=== PATIENT | female | born 1995 ===

== ENCOUNTER → 2020-10-03 15:03 | Outpatient (BNVA) | payer BC, MEDICAID, SELFPAY | PROVIDERS: Visit Provider Advanced Practice Midwife | DX: Z76.89 Persons encountering health services in other specified circumstances (principal) ==

== ENCOUNTER → 2020-10-31 14:03 | Outpatient (BNVA) | payer BC, MEDICAID, SELFPAY | PROVIDERS: Visit Provider Advanced Practice Midwife | DX: Z76.89 Persons encountering health services in other specified circumstances (principal) | CPT/HCPCS: 99212 ==

== ENCOUNTER 2020-11-13 14:18 | Outpatient (REF) | payer MEDICAID, SELFPAY ==
[2020-11-13 14:59] LABS: MANUAL DIFF FLAG NO
[2020-11-13 15:06] LABS: Basophils Percent Auto 0.4 % (0-2); Eosinophils Absolute Auto 0.1 X10*3/uL (0.0-0.4); Eosinophils Percent Auto 0.5 % (0-4); Hematocrit 36.6 % (37-47); Hemoglobin 11.8 g/dl (12.0-16.0); Imm Gran Abs Auto 0.03 X10*3/uL (0.00-0.03); Imm Gran Pct Auto 0.3 % (0.0-0.4); Lymphocytes Absolute Auto 2.4 X10*3/uL (1.2-4.9); Lymphocytes Percent Auto 22.2 % (20-40); Mean Corpuscular HGB Conc 32.2 g/dl (31.0-35.0); Mean Corpuscular Hemoglobin 26.9 pg (27.0-33.0); Mean Corpuscular Volume 83.4 fL (80-98); Mean Platelet Volume 11.4 fL (9.4-12.3); Monocytes Absolute Auto 0.8 X10*3/uL (0.1-1.2); Monocytes Percent Auto 7.1 % (2-11); Neutrophils Absolute Auto 7.4 X10*3/uL (2.0-8.3); Neutrophils Percent Auto 69.5 % (45-73); Platelet Count 344 X10*3/uL (160-400); Red Blood Count 4.39 X10*6/uL (4.20-5.50); Red Cell Distribution Width 14.2 % (11.0-16.0); White Blood Count 10.6 X10*3/uL (4.8-10.8)
[2020-11-13 15:36] LABS: Alanine Aminotransferase 13 U/L (0-31); Albumin Level 4.2 g/dL (3.5-5.0); Alkaline Phosphatase 57 U/L (39-117); Anion Gap 13 (12-20); Aspartate Amino Transferase 17 U/L (5-31); Bilirubin Total 0.2 mg/dL (0.0-1.0); Blood Urea Nitrogen 14 mg/dL (9-16); Calcium 9.1 mg/dL (8.4-10.2); Carbon Dioxide 26 mmol/L (22-29); Chloride 103 mmol/L (96-108); Estimated Glomerular Filt Rate > 60; Glucose Random 80 mg/dL (60-115); Potassium 4.6 mmol/l (3.3-5.1); Sodium 137 mmol/L (135-145); Total Protein 7.4 g/dL (6.5-8.0); Uric Acid 2.4 mg/dL (2.4-5.7)
[2020-11-13 15:40] LABS: Amphetamine Screen Urine Not Detected (Not Detect); Barbiturates, Urine Not Detected (Not Detect); Benzodiazepines Screen Urine Not Detected (Not Detect); Cannabinoid Screen Urine Not Detected (Not Detect); Cocaine Screen Urine Not Detected (Not Detect); Creatinine Urine 157.71 mg/dL; Opiate Screen Urine Not Detected (Not Detect); Phencyclidine Screen Urine Not Detected (Not Detect); Total Protein Urine Random 16 mg/dL (<12)
[2020-11-13 15:50] LABS: Syphilis Screen Nonreactive (Nonreactive)
[2020-11-14 04:31] LABS: HIV AB/AG Nonreactive (Nonreactive); HIV Num 1 0.14 S/CO (0.00-0.99); ~HepC Num1 0.09 S/CO (0.00-0.79); ~Hepatitis C Antibody Nonreactive (Nonreactive)
[2020-11-14 04:34] LABS: HBsAGNum1 0.26 S/CO (0.00-0.99); Hepatitis B Surface Antigen Negative (Negative)
== END 2020-11-13 14:19 | disposition home or self-care (01) ==
LOC: HO.LAB 14:18
PROVIDERS: PCP Internal Medicine; Visit Provider Advanced Practice Midwife
DX: Z34.90 Encounter for supervision of normal pregnancy, unspecified, unspecified trimester (principal)
CPT/HCPCS: 36415; 80053; 80307; 84156; 84550; 85025; 86780; 86803; 86850; 86900; 86901; 87086; 87340; 87389

== ENCOUNTER 2020-11-14 08:47 | Outpatient (REF) | payer MEDICAID, SELFPAY ==
[2020-11-15 17:47] LABS: C. trachomatis RNA TMA NOT DETECTED (NOT DETECTED); N. gonorrhoeae RNA TMA NOT DETECTED (NOT DETECTED)
== END 2020-11-14 08:48 | disposition home or self-care (01) ==
LOC: HO.LAB 08:47
PROVIDERS: Visit Provider Advanced Practice Midwife
DX: Z34.90 Encounter for supervision of normal pregnancy, unspecified, unspecified trimester (principal); Z86.010 Personal history of colon polyps
CPT/HCPCS: 87491; 87591; 88142; 99212

== ENCOUNTER 2020-11-24 09:15 | Outpatient (REF) | payer MEDICAID, SELFPAY ==
--- NOTE | 2020-11-24 09:19 | US_ITS ---
EXAMINATION: OBSTETRICAL ULTRASOUND, FIRST TRIMESTER HISTORY: 25-year-old at the 12.0 weeks of gestation History of preeclampsia and IUGR Membranous nephropathy NT screening COMPARISON: None TECHNIQUE: Real time transabdominal imaging with color and M-mode Doppler. FINDINGS: A single, live IUP CRL of 64.5 mm c/w 12.6wks is noted. Heart Rate: 158 beats per minute. Normal yolk sac seen. NT was 1.1.mm. NB Present The embryo appears sonographically wnl for this GA. Both maternal ovaries are seen and appear normal. GESTATIONAL AGE: 1. Established GA: 12.0 wks 2. GA from A: 12.6 wks ESTIMATED DATE OF DELIVERY: 1. Established CHAS: 06/08/2021 2. [facility]21 US/US OB 1T nuc measure IMPRESSION: 1. A single live IUP 2. Size equals dates 3. NT of 1.1 mm MFM Consultation: I reviewed the ultrasound findings along with significance of NT measurement. The NT of less than 3mm is generally reassuring. However, the sensitivity for T21 detection is only 60%. I reviewed the availability of serum aneuploidy screening which includes cell-free DNA and placental protein based tests. I discussed the sensitivity, false-positive rate, and other limitations associated with each test. I also reviewed the availability of invasive diagnostic tests that are associated small but definite risk of miscarriage. We also reviewed the differences between screening tests and diagnostic tests. After our discussion, she opted for the First trimester screening that is based on cell-free DNA or non-invasive testing (NIPT). In 2018, patient delivered at 36 weeks of 4 lbs. 15 oz. coronal. The was complicated by preeclampsia. 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 She is currently followed by a nurse healthcare manager (Dr. Medley) and was being treated with the lisinopril but discontinued once became . We discussed the increased risk of the preeclampsia (approximately 20% recurrence rate). Since she has baseline proteinuria, it may be difficult to diagnosis superimpose preeclampsia. In addition she is at increased risk of IUGR given her history. She is currently on the baby aspirin q.d. Her blood pressure is within normal range without medication. I reassured her that if she needs to control BP, we have agents other than DOYLE inhibitors. Lisinopril should be avoided in . While there are reports of increasing proteinuria during in women with the membranous nephritis, the long-term prognosis does not appear to be altered by the . A baseline 24-hour urine as well as preeclampsia labs are suggested. She will need intermittent growth evaluation throughout the as well as weekly testing most likely starting at 32 weeks. A follow up at 18 weeks for survey has been scheduled. Thank you very much for this referral. Total Time spent: 30 min (0,20,10)
== END 2020-11-24 09:16 | disposition home or self-care (01) ==
LOC: HO.US 09:15
PROVIDERS: Visit Provider Advanced Practice Midwife
DX: Z34.90 Encounter for supervision of normal pregnancy, unspecified, unspecified trimester (principal); Z36.82 Encounter for antenatal screening for nuchal translucency
CPT/HCPCS: 76813

== ENCOUNTER → 2020-12-12 12:02 | Outpatient (BNVA) | payer MEDICAID, SELFPAY | PROVIDERS: PCP Internal Medicine; Visit Provider Advanced Practice Midwife | DX: Z76.89 Persons encountering health services in other specified circumstances (principal) | CPT/HCPCS: 99212 ==

== ENCOUNTER → 2021-01-09 11:26 | Outpatient (BNVA) | payer MEDICAID, SELFPAY | PROVIDERS: PCP Internal Medicine; Visit Provider Advanced Practice Midwife | CPT/HCPCS: 99212 ==

== ENCOUNTER 2021-01-12 12:20 | Outpatient (REF) | payer MEDICAID, SELFPAY ==
--- NOTE | ~2021-01-12 | US_ITS ---
EXAMINATION: US OBSTETRICAL CLINICAL INFORMATION: 25-year-old at 19 History of preeclampsia and IUGR Membranous nephropathy Screening for anomaly COMPARISON: 1 8 TECHNIQUE: Real-time transabdominal ultrasound was performed using C1-5 megahertz transducer. FINDINGS: A single, active, fetus is seen in vertex presentation. The placenta is anterior without previa, and the amniotic fluid volume is wnl. MEASUREMENTS: 1. Biparietal Diameter: 4.3 cm; 19.0 wks 2. Occipital Frontal Diameter: 5.27 cm 3. Head Circumference: 16.1 cm; 19.0 wks 4. Abdominal Circumference: 13.5 cm; 19.0 wks 5. Femur Length: 2.82 cm; 25 wks 6. Humerus Length: 3.0 cm; 19.6 wks 7. Tibia Length: 2.7 cm; 19.6 wks 8. Ulna Length: 2.83 cm; 20.4 wks 9. Lateral ventricle: 0.53 cm 10. Cerebellum: 1.97 cm; 20.1 wks 11. Cisterna Magna: 0.36 cm 12. Nuchal Fold: 4.0 mm 13. Heart Rate: 149 beats per minute Rt ovary: normal Lt ovary: Unable to visualize Cervical length 3.5 cm on T/A. GESTATIONAL AGE: 1. Established GA: 19.0 wks 2. GA from A: 19.0 wks ESTIMATED DATE OF DELIVERY: 1. Established CHAS: 06/08/2021 2. CHAS from [facility]: 06/08/2021 ANATOMY: The visualized anatomy includes but not limited to: 1. Cranium: Normal 2. Intracranial anatomy: cavum septum pellucidi, lateral ventricles, choroid plexus, cerebellum, posterior fossa, third and fourth ventricles. 3. face: orbits, lip/palate, profile, nasal bone 4. Heart: four-chamber view of the heart, ventricular septum, foramen ovale, pulmonary vein, left and right outflow tracts, three-vessel view, 3 vessel trachea view, aortic and ductal arches, situs.. 5. Diaphragm: Normal 6. Abdominal wall: Normal 7. Cord Insertion: Normal 8. Spine: Cervical, thoracic, lumbar, sacral. 9. Stomach: Normal size and shape 10. Right Kidney: Normal 11. Left Kidney: Normal 12. 3 vessel cord: Normal 13. Upper extremity: Open hands, fifth digit. 14. Lower extremity: Tibia, fibula, bilateral feet. 15. Bladder: Normal 16. Genitalia: Male, patient aware US/US OB /maternal detail IMPRESSION: 1. Single, living, intrauterine with appropriate biometry. 2. Normal survey DISCUSSION: I reviewed today's ultrasound findings. We discussed the limitations of ultrasound in diagnosing aneuploidy and other congenital abnormalities. I reviewed the differences between screening test and diagnostic test. Amniocentesis was discussed and declined. She reports that her membranous nephropathy is stable. She is on baby aspirin q.d. Suggested that she follow-up at approximately 28 weeks for an interval growth (not scheduled). She was informed that the baseline incidence of congenital abnormalities is approximately 3-5%. Not all these conditions are diagnosable in utero. RECOMMENDATIONS: 1. Growth evaluation at 28 weeks (not scheduled) 2. Baby ASA q.d. for preeclampsia prophylaxis 3. Nephrology follow-up. Thank you for allowing me to participate in her care. Visiting time 20 minutes. Majority of this visit was spent reviewing and discussing her care.
== END 2021-01-12 12:21 | disposition home or self-care (01) ==
LOC: HO.US 12:20
PROVIDERS: Visit Provider Advanced Practice Midwife
DX: Z36.3 Encounter for antenatal screening for malformations (principal); O09.292 Supervision of pregnancy with other poor reproductive or obstetric history, second trimester; Z3A.19 19 weeks gestation of pregnancy
CPT/HCPCS: 76811

== ENCOUNTER → 2021-02-06 14:22 | Outpatient (BNVA) | payer MEDICAID, SELFPAY | PROVIDERS: PCP Internal Medicine; Visit Provider Advanced Practice Midwife | DX: O26.892 Other specified pregnancy related conditions, second trimester (principal); K42.9 Umbilical hernia without obstruction or gangrene; Z3A.22 22 weeks gestation of pregnancy | CPT/HCPCS: 81003; 99212 ==

== ENCOUNTER → 2021-03-02 10:55 | Outpatient (BNVA) | payer MEDICAID, SELFPAY | PROVIDERS: PCP Internal Medicine; Visit Provider Surgery | DX: K42.9 Umbilical hernia without obstruction or gangrene (principal) | CPT/HCPCS: 99202 ==

== ENCOUNTER 2021-03-06 15:16 | Outpatient (REF) | payer MEDICAID, SELFPAY ==
[2021-03-06 16:40] LABS: MANUAL DIFF FLAG NO
[2021-03-06 16:47] LABS: Basophils Percent Auto 0.2 % (0-2); Eosinophils Percent Auto 0.2 % (0-4); Hematocrit 31.5 % (37-47); Hemoglobin 10.2 g/dl (12.0-16.0); Imm Gran Abs Auto 0.08 X10*3/uL (0.00-0.03); Imm Gran Pct Auto 0.7 % (0.0-0.4); Lymphocytes Absolute Auto 2.6 X10*3/uL (1.2-4.9); Lymphocytes Percent Auto 21.4 % (20-40); Mean Corpuscular HGB Conc 32.4 g/dl (31.0-35.0); Mean Corpuscular Hemoglobin 28.4 pg (27.0-33.0); Mean Corpuscular Volume 87.7 fL (80-98); Mean Platelet Volume 11.4 fL (9.4-12.3); Monocytes Absolute Auto 0.8 X10*3/uL (0.1-1.2); Monocytes Percent Auto 6.3 % (2-11); Neutrophils Absolute Auto 8.7 X10*3/uL (2.0-8.3); Neutrophils Percent Auto 71.2 % (45-73); Platelet Count 293 X10*3/uL (160-400); Red Blood Count 3.59 X10*6/uL (4.20-5.50); Red Cell Distribution Width 13.5 % (11.0-16.0); White Blood Count 12.3 X10*3/uL (4.8-10.8)
[2021-03-07 08:46] LABS: Syphilis Screen Nonreactive (Nonreactive)
== END 2021-03-06 15:17 | disposition home or self-care (01) ==
LOC: HO.LAB 15:16
PROVIDERS: PCP Internal Medicine; Visit Provider Obstetrics & Gynecology
DX: Z34.83 Encounter for supervision of other normal pregnancy, third trimester (principal); Z3A.26 26 weeks gestation of pregnancy; Z87.448 Personal history of other diseases of urinary system
CPT/HCPCS: 36415; 81003; 85025; 86780; 99212

== ENCOUNTER 2021-03-14 11:40 | Outpatient (REF) | payer MEDICAID, SELFPAY ==
[2021-03-15 03:36] LABS: CT PCR NOT DETECTED (Not Detect.); NG PCR NOT DETECTED (Not Detect.)
[2021-03-15 09:05] LABS: BV Int Neg Control Negative (Negative); BV Int Pos Control Positive (Positive)
== END 2021-03-14 11:41 | disposition home or self-care (01) ==
LOC: HO.LAB 11:40
PROVIDERS: Visit Provider Advanced Practice Midwife
DX: O26.892 Other specified pregnancy related conditions, second trimester (principal); N89.8 Other specified noninflammatory disorders of vagina; R10.2 Pelvic and perineal pain; Z3A.27 27 weeks gestation of pregnancy; Z87.59 Personal history of other complications of pregnancy, childbirth and the puerperium; Z86.16 Personal history of COVID-19
CPT/HCPCS: 81003; 87480; 87491; 87510; 87591; 87660; 99212

== ENCOUNTER 2021-03-23 13:32 | Outpatient (REF) | payer MEDICAID, SELFPAY ==
--- NOTE | ~2021-03-23 | US_ITS ---
EXAMINATION: OBSTETRICAL ULTRASOUND, Follow up HISTORY: 25-year-old at 29.0 weeks of gestation Membranous nephropathy Size date discrepancy COMPARISON: 02/23/2021 TECHNIQUE: Real time transabdominal imaging with color and M-mode Doppler. PRESENTATION: Breech PLACENTA LOCATION: Anterior without previa AMNIOTIC FLUID: Normal MEASUREMENTS: 1. Biparietal Diameter: 7.0 cm; 28.2 wks 2. Head Circumference: 27.1 cm; 29.5 wks 3. Abdominal Circumference: 23.9 cm; 20.2 wks 4. Femur Length: 5.4 cm; 20.3 wks 5. Heart Rate: 125 beats per minute WEIGHT: EFW: 1224 grams (2 lbs 11 oz) -- 19 %. GESTATIONAL AGE: 1. Established GA: 29.0 wks 2. GA from AUA: 28.5 wks ESTIMATED DATE OF DELIVERY: 1. Established CHAS: 06/08/2021 2. CHAS from [facility]: 06/10/2021 US/US OB follow up IMPRESSION: 1. A single active fetus is in breech presentation 2. Size equals dates 3. Normal amniotic fluid volume Patient reports continued remission of her membranous nephropathy. According to her, proteinuria remains stable. Denies hypertension. In addition she denies symptoms or signs of severe preeclampsia. Unless she develops superimposed preeclampsia, membranous nephropathy is associated with the benign obstetrical outcome. Given that the EFW corresponds to 20th percentile, I suggested a follow-up in approximately 4 weeks (not scheduled). Thank you very much for this referral. Total time 30 minutes. The time spent was devoted to counseling the patient about the disease and diagnosis, coordinating care including reviewing her records, pertinent lab data and studies, as well as discussing diagnostic evaluation and workup, plan therapeutic interventions and future disposition of care. This includes any additional research needed to obtain further information in formulating the plan of care of this patient. This note was generated with a voice recognition program. Please excuse any errors which may have been overlooked during my review of this note. Sometimes these errors may affect the content or meaning of a given sentence.
[2021-03-23 16:46] LABS: Hemoglobin 10.6 g/dl (12.0-16.0); Mean Corpuscular HGB Conc 32.1 g/dl (31.0-35.0); Mean Corpuscular Hemoglobin 28.3 pg (27.0-33.0); Mean Corpuscular Volume 88.2 fL (80-98); Mean Platelet Volume 12.1 fL (9.4-12.3); Platelet Count 271 X10*3/uL (160-400); Red Blood Count 3.74 X10*6/uL (4.20-5.50); Red Cell Distribution Width 13.1 % (11.0-16.0); White Blood Count 9.8 X10*3/uL (4.8-10.8)
[2021-03-23 16:59] LABS: Glucose 1 Hour PP 50gm Dose 159 mg/dL (60-140)
[2021-03-23 17:25] LABS: Syphilis Screen Nonreactive (Nonreactive)
== END 2021-03-23 13:33 | disposition home or self-care (01) ==
LOC: HO.US 13:32
PROVIDERS: Absent Provider Advanced Practice Midwife; PCP Internal Medicine; Visit Provider Obstetrics & Gynecology
DX: O26.893 Other specified pregnancy related conditions, third trimester (principal); Z3A.29 29 weeks gestation of pregnancy; Z20.2 Contact with and (suspected) exposure to infections with a predominantly sexual mode of transmission; Z87.448 Personal history of other diseases of urinary system
CPT/HCPCS: 36415; 76816; 85027; 86780

== ENCOUNTER → 2021-03-26 13:24 | Outpatient (BNVA) | payer MEDICAID, SELFPAY | PROVIDERS: PCP Internal Medicine; Visit Provider Advanced Practice Midwife | DX: O09.299 Supervision of pregnancy with other poor reproductive or obstetric history, unspecified trimester (principal); Z3A.29 29 weeks gestation of pregnancy; Z87.448 Personal history of other diseases of urinary system | CPT/HCPCS: 81003; 99212 ==

== ENCOUNTER 2021-04-02 12:25 | Outpatient (REF) | payer MEDICAID, SELFPAY ==
[2021-04-02 13:21] LABS: Glucose Fasting 69 mg/dL (60-99)
[2021-04-02 14:33] LABS: Glucose 1 Hour 145 mg/dL
[2021-04-02 15:14] LABS: Glucose 2 Hour 149 mg/dL
[2021-04-02 16:49] LABS: Glucose 3 Hour 161 mg/dL
== END 2021-04-02 12:26 | disposition home or self-care (01) ==
LOC: HO.LAB 12:25
PROVIDERS: PCP Internal Medicine; Visit Provider Obstetrics & Gynecology
DX: R73.09 Other abnormal glucose (principal)
CPT/HCPCS: 36415; 82951

== ENCOUNTER → 2021-04-09 14:43 | Outpatient (BNVA) | payer MEDICAID, SELFPAY | PROVIDERS: PCP Internal Medicine; Visit Provider Advanced Practice Midwife | DX: O09.293 Supervision of pregnancy with other poor reproductive or obstetric history, third trimester (principal); O99.013 Anemia complicating pregnancy, third trimester; D64.9 Anemia, unspecified; Z3A.31 31 weeks gestation of pregnancy | CPT/HCPCS: 81003; 99212 ==

== ENCOUNTER 2021-04-20 13:51 | Outpatient (REF) | payer MEDICAID, SELFPAY ==
--- NOTE | ~2021-04-20 | US_ITS ---
EXAMINATION: OBSTETRICAL ULTRASOUND, Follow up HISTORY: 21-year-old at 33.0 weeks of gestation Size date discrepancy COMPARISON: 03/23/2021 TECHNIQUE: Real time transabdominal imaging with color and M-mode Doppler. PRESENTATION: Vertex PLACENTA LOCATION: Anterior without previa AMNIOTIC FLUID: SAQIB 13.9 cm MEASUREMENTS: 1. Biparietal Diameter: 7.7 cm; 30.6 wks 2. Head Circumference: 30.1 cm; 33.3 wks 3. Abdominal Circumference: 26.9 cm; 31.0 wks 4. Femur Length: 6.2 cm; 32.1 wks 5. Heart Rate: 140 beats per minute WEIGHT: EFW: 1788 grams (3 lbs 15 oz) -- 9 %. BIOPHYSICAL PROFILE: Motion: 2 Tone: 2 Breathin Amniotic Fluid: 2 Total score: 8/8 UA Doppler showed the SD ratio of 2.5 which is within normal limits. GESTATIONAL AGE: 1. Established GA: 33.0 wks 2. GA from AUA: 31.6 wks ESTIMATED DATE OF DELIVERY: 1. Established CHAS: 06/08/2021 2. CHAS from [facility]: 06/16/2021 US/US OB velocimetry umbilical ar IMPRESSION: 1. Single active fetus is in vertex presentation 2. Size less than dates, EFW corresponds to 9th percentile. Compared to the prior exam, there has been less than expected interval growth. 3. Reassuring biophysical profile with normal amniotic fluid index 4. Normal UA Doppler SD ratio I reviewed today's ultrasound findings and discussed the limitations of ultrasound and estimating weights. In addition we discussed the clinical significance of percentile weight. Majority of the fetuses whose EFW falls below the 10th percentile are constitutionally small but the healthy fetuses growing to their full genetic potential. Approximately 20% may be experiencing placental insufficiency. Often it is difficult to distinguish the 2. Her testing is reassuring. She should start weekly monitoring. We will repeat the growth evaluation in 2 weeks. Thank you very much for this referral. Total time 30 minutes. The time spent was devoted to counseling the patient about the disease and diagnosis, coordinating care including reviewing her records, pertinent lab data and studies, as well as discussing diagnostic evaluation and workup, plan therapeutic interventions and future disposition of care. This includes any additional research needed to obtain further information in formulating the plan of care of this patient. This note was generated with a voice recognition program. Please excuse any errors which may have been overlooked during my review of this note. Sometimes these errors may affect the content or meaning of a given sentence.
== END 2021-04-20 13:52 | disposition home or self-care (01) ==
LOC: HO.US 13:51
PROVIDERS: Visit Provider Advanced Practice Midwife
DX: O09.293 Supervision of pregnancy with other poor reproductive or obstetric history, third trimester (principal); Z3A.33 33 weeks gestation of pregnancy; Z87.448 Personal history of other diseases of urinary system
CPT/HCPCS: 76816; 76820

== ENCOUNTER → 2021-04-23 14:29 | Outpatient (BNVA) | payer MEDICAID, SELFPAY | PROVIDERS: PCP Internal Medicine; Visit Provider Advanced Practice Midwife | DX: O36.5930 Maternal care for other known or suspected poor fetal growth, third trimester, not applicable or unspecified (principal); O99.013 Anemia complicating pregnancy, third trimester; O09.293 Supervision of pregnancy with other poor reproductive or obstetric history, third trimester; Z3A.33 33 weeks gestation of pregnancy | CPT/HCPCS: 81003; 99212 ==

== ENCOUNTER → 2021-05-01 14:24 | Outpatient (BNVA) | payer MEDICAID, SELFPAY | PROVIDERS: Visit Provider Advanced Practice Midwife | DX: O99.013 Anemia complicating pregnancy, third trimester (principal); O09.299 Supervision of pregnancy with other poor reproductive or obstetric history, unspecified trimester; Z3A.34 34 weeks gestation of pregnancy | CPT/HCPCS: 59025; 81003; 99212 ==

== ENCOUNTER 2021-05-04 11:51 | Outpatient (REF) | payer MEDICAID, SELFPAY ==
--- NOTE | ~2021-05-04 | US_ITS ---
EXAMINATION: OBSTETRICAL ULTRASOUND, Follow up HISTORY: 25-year-old at 35.0 weeks of gestation growth restriction History of preeclampsia COMPARISON: 04/20/2021 TECHNIQUE: Real time transabdominal imaging with color and M-mode Doppler. PRESENTATION: Vertex PLACENTA LOCATION: Anterior without previa AMNIOTIC FLUID: SAQIB 9.1 cm MEASUREMENTS: 1. Biparietal Diameter: 8.0 cm; 32.2 wks 2. Head Circumference: 30.6 cm; 34.1 wks 3. Abdominal Circumference: 28.6 cm; 32.5 wks 4. Femur Length: 6.8 cm; 34.6 wks 5. Heart Rate: 150 beats per minute WEIGHT: EFW: 2181 grams (4 lbs 13 oz) -- 10 %. BIOPHYSICAL PROFILE: Motion: 2 Tone: 2 Breathin Amniotic Fluid: 2 Total score: 8/8 UA Doppler: SD ratio 2.8 GESTATIONAL AGE: 1. Established GA: 35.0 wks 2. GA from AUA: 33.4 wks ESTIMATED DATE OF DELIVERY: 1. Established CHAS: 06/08/2021 2. CHAS from [facility]: 06/18/2021 US/US OB velocimetry umbilical ar IMPRESSION: 1. Single active fetus is in vertex presentation 2. Size less than dates, EFW corresponds to approximately 10th percentile. However compared to prior exam, there has been appropriate interval growth 3. Reassuring biophysical profile, SAQIB and normal SD ratio in the umbilical artery I informed the patient that the fetus has grown appropriately since prior exam. The EFW continues to correspond to approximately 10th percentile. The testing is reassuring with normal SD ratio. Patient reports active movements. She is to continue NST every week as well as BPP and UA Doppler. Thank you very much for this referral. Total time 30 minutes. The time spent was devoted to counseling the patient about the disease and diagnosis, coordinating care including reviewing her records, pertinent lab data and studies, as well as discussing diagnostic evaluation and workup, plan therapeutic interventions and future disposition of care. This includes any additional research needed to obtain further information in formulating the plan of care of this patient. This note was generated with a voice recognition program. Please excuse any errors which may have been overlooked during my review of this note. Sometimes these errors may affect the content or meaning of a given sentence.
== END 2021-05-04 11:52 | disposition home or self-care (01) ==
LOC: HO.US 11:51
PROVIDERS: Visit Provider Advanced Practice Midwife
DX: O99.013 Anemia complicating pregnancy, third trimester (principal); D64.9 Anemia, unspecified; O36.5993 Maternal care for other known or suspected poor fetal growth, unspecified trimester, fetus 3; O09.293 Supervision of pregnancy with other poor reproductive or obstetric history, third trimester; Z3A.35 35 weeks gestation of pregnancy
CPT/HCPCS: 76816; 76820; 81003; 99212

== ENCOUNTER → 2021-05-08 12:53 | Outpatient (BNVA) | payer MEDICAID, SELFPAY | PROVIDERS: Visit Provider Obstetrics & Gynecology | DX: O36.5930 Maternal care for other known or suspected poor fetal growth, third trimester, not applicable or unspecified (principal); Z3A.35 35 weeks gestation of pregnancy | CPT/HCPCS: 59025; 90471; 90715; 99212 ==

== ENCOUNTER 2021-05-11 10:24 | Outpatient (REF) | payer MEDICAID, SELFPAY ==
--- NOTE | ~2021-05-11 | US_ITS ---
EXAMINATION: US OBSTETRICAL (BIOPHYSICAL PROFILE) CLINICAL INFORMATION: 25-year-old at 36.0 weeks of gestation growth restriction COMPARISON: 05/04/2021 TECHNIQUE: Biophysical profile is performed over 30 minutes with assessment of breathing, gross body movement, tone, and qualitative amniotic fluid volume. FINDINGS: POSITION: Cephalic PLACENTA: Anterior without previa AMNIOTIC FLUID INDEX: 12.5 cm CARDIAC ACTIVITY: 142 beats per minute BIOPHYSICAL PROFILE: Motion: 2 Tone: 2 Breathin Amniotic Fluid: 2 The total biophysical score is 8/8 UA Doppler showed SD ratio of 2.6. US/US OB velocimetry umbilical ar IMPRESSION: 1. Single intrauterine gestation in vertex position. 2. Reassuring BPP and SAQIB 3. Normal UA Doppler Thank you for allowing me to participate in her care. This note was generated with a voice recognition program. Please excuse any errors which may have been overlooked during my review of this note. Sometimes these errors may affect the content or meaning of a given sentence.
--- NOTE | ~2021-05-11 | US_ITS ---
EXAMINATION: US OBSTETRICAL (BIOPHYSICAL PROFILE) CLINICAL INFORMATION: 25-year-old at 36.0 weeks of gestation growth restriction COMPARISON: 05/04/2021 TECHNIQUE: Biophysical profile is performed over 30 minutes with assessment of breathing, gross body movement, tone, and qualitative amniotic fluid volume. FINDINGS: POSITION: Cephalic PLACENTA: Anterior without previa AMNIOTIC FLUID INDEX: 12.5 cm CARDIAC ACTIVITY: 142 beats per minute BIOPHYSICAL PROFILE: Motion: 2 Tone: 2 Breathin Amniotic Fluid: 2 The total biophysical score is 8/8 UA Doppler showed SD ratio of 2.6. US/US OB biophysical profile IMPRESSION: 1. Single intrauterine gestation in vertex position. 2. Reassuring BPP and SAQIB 3. Normal UA Doppler Thank you for allowing me to participate in her care. This note was generated with a voice recognition program. Please excuse any errors which may have been overlooked during my review of this note. Sometimes these errors may affect the content or meaning of a given sentence.
== END 2021-05-11 10:25 | disposition home or self-care (01) ==
LOC: HO.US 10:24
PROVIDERS: Visit Provider Advanced Practice Midwife
DX: O09.299 Supervision of pregnancy with other poor reproductive or obstetric history, unspecified trimester (principal); O99.019 Anemia complicating pregnancy, unspecified trimester; O36.5990 Maternal care for other known or suspected poor fetal growth, unspecified trimester, not applicable or unspecified
CPT/HCPCS: 76819; 76820

== ENCOUNTER → 2021-05-15 10:27 | Outpatient (BNVA) | payer MEDICAID, SELFPAY | PROVIDERS: Visit Provider Advanced Practice Midwife | DX: O36.5930 Maternal care for other known or suspected poor fetal growth, third trimester, not applicable or unspecified (principal); O99.013 Anemia complicating pregnancy, third trimester; O09.293 Supervision of pregnancy with other poor reproductive or obstetric history, third trimester; Z3A.36 36 weeks gestation of pregnancy | CPT/HCPCS: 59025; 99212 ==

== ENCOUNTER 2021-05-18 12:56 | Outpatient (REF) | payer MEDICAID, SELFPAY ==
--- NOTE | ~2021-05-18 | US_ITS ---
EXAMINATION: OBSTETRICAL ULTRASOUND, Follow up HISTORY: 26-year-old at the 37.0 weeks of gestation Small for gestational age COMPARISON: 05/11/2021 TECHNIQUE: Real time transabdominal imaging with color and M-mode Doppler. PRESENTATION: Vertex PLACENTA LOCATION: Anterior without previa AMNIOTIC FLUID: SAQIB 15.4 cm MEASUREMENTS: 1. Biparietal Diameter: 8.3 cm; 33.2 wks 2. Head Circumference: 31.3 cm; 35.1 wks 3. Abdominal Circumference: 29.3 cm; 33.3 wks 4. Femur Length: 7.0 cm; 36.1 wks 5. Heart Rate: 156 beats per minute WEIGHT: EFW: 2391 grams (5 lbs 4 oz) -- 5 %. BIOPHYSICAL PROFILE: Motion: 2 Tone: 2 Breathin Amniotic Fluid: 2 Total score: 8/8 UA Doppler showed SD ratio of 2.8 GESTATIONAL AGE: 1. Established GA: 37.0 wks 2. GA from AUA: 34.4 wks ESTIMATED DATE OF DELIVERY: 1. Established CHAS: 06/08/2021 2. CHAS from [facility]: 06/25/2021 US/US OB velocimetry umbilical ar IMPRESSION: 1. A single active fetus is in vertex presentation 2. Size less than dates, EFW corresponds to 5th percentile, c/w FGR. 3. Line reassuring biophysical profile 4. Normal SD ratio in umbilical artery I reviewed today's findings and informed her that there has been less than expected interval growth. I discussed the limitations of ultrasound and estimating weights. Although the EFW corresponds to 5th percentile, the testing including the UA Doppler are reassuring. I am concerned that compared to prior exam, there has been less than expected interval growth. Patient is complaining of new onset headache and elevated blood pressure of 140s over 90s which she took at home. Recommended that she proceed to the to your office for nonstress test and blood pressure evaluation. If she rules in for gestational hypertension and or preeclampsia, delivery is recommended. Otherwise she can continue with NST 2 times per week and weekly BPP and umbilical artery Doppler evaluation until approximately 39 weeks of gestation. Thank you very much for this referral. Total time 45 minutes. The time spent was devoted to counseling the patient about the disease and diagnosis, coordinating care including reviewing her records, pertinent lab data and studies, as well as discussing diagnostic evaluation and workup, plan therapeutic interventions and future disposition of care. This includes any additional research needed to obtain further information in formulating the plan of care of this patient. This note was generated with a voice recognition program. Please excuse any errors which may have been overlooked during my review of this note. Sometimes these errors may affect the content or meaning of a given sentence.
== END 2021-05-18 12:57 | disposition home or self-care (01) ==
LOC: HO.US 12:56
PROVIDERS: Visit Provider Advanced Practice Midwife
DX: O36.5930 Maternal care for other known or suspected poor fetal growth, third trimester, not applicable or unspecified (principal); Z3A.37 37 weeks gestation of pregnancy
CPT/HCPCS: 76816; 76820

== ENCOUNTER 2021-07-11 11:00 | Outpatient (REF) | payer MEDICAID, SELFPAY ==
[2021-07-12 05:53] LABS: CT PCR NOT DETECTED (Not Detect.); NG PCR NOT DETECTED (Not Detect.)
[2021-07-12 09:01] LABS: BV Int Neg Control Negative (Negative); BV Int Pos Control Positive (Positive)
== END 2021-07-11 11:01 | disposition home or self-care (01) ==
LOC: HO.LAB 11:00
PROVIDERS: Visit Provider Advanced Practice Midwife
DX: Z01.419 Encounter for gynecological examination (general) (routine) without abnormal findings (principal); Z20.2 Contact with and (suspected) exposure to infections with a predominantly sexual mode of transmission; Z39.1 Encounter for care and examination of lactating mother; Z39.2 Encounter for routine postpartum follow-up; Z79.899 Other long term (current) drug therapy
CPT/HCPCS: 87480; 87491; 87510; 87591; 87660; 88142; 99212

== ENCOUNTER → 2021-08-14 10:08 | Outpatient (BNVA) | payer MEDICAID, SELFPAY | PROVIDERS: PCP Internal Medicine; Visit Provider Surgery | DX: K42.9 Umbilical hernia without obstruction or gangrene (principal) | CPT/HCPCS: 99212 ==

== ENCOUNTER 2022-09-09 09:39 | Outpatient (REF) | payer MEDICAID, SELFPAY ==
[2022-09-09 14:11] LABS: CT PCR NOT DETECTED (Not Detect.); NG PCR NOT DETECTED (Not Detect.)
[2022-09-10 12:23] LABS: BV Int Neg Control Negative (Negative); BV Int Pos Control Positive (Positive)
== END 2022-09-09 09:40 | disposition home or self-care (01) ==
LOC: HO.LNP 09:39
PROVIDERS: Visit Provider Advanced Practice Midwife
DX: Z01.419 Encounter for gynecological examination (general) (routine) without abnormal findings (principal); Z11.3 Encounter for screening for infections with a predominantly sexual mode of transmission
CPT/HCPCS: 87480; 87491; 87510; 87591; 87660

== ENCOUNTER 2023-10-22 10:00 | Outpatient (AMB) | payer MEDICAID, SELFPAY ==
--- NOTE | 2023-10-22 10:21 | HO.NEPHOV_ITS ---
HPI HPI Comments History of Present Illness Details I had the privilege of seeing Lynda in follow-up for her history of proteinuria. She had biopsy-proven membranous nephropathy. She was on DOYLE- inhibitor which was discontinued during her . She never had rituximab. Her anti CRESCENCIO 2R antibody has been negative. She has no edema, froth or foam in the urine. Her blood pressure has been normal and his serum creatinine has been stable. she hydrates herself well and avoids nonsteroidal anti-inflammatory medications. She feels well at the time of this visit. [facility] Medical History History of rectal polyps Hx of membranous glomerulonephritis Hx of pre-eclampsia in prior , currently Family History Mother No problems noted. Father Hx of primary hypertension Hx of arterial ischemic stroke Maternal Grandfather No problems noted. Maternal Grandmother Hx of diabetes mellitus Paternal Grandfather No problems noted. Maternal Grandmother No problems noted. Brother No problems noted. Brother No problems noted. Sister No problems noted. Social History Alcohol intake: never Patient Tobacco Use Status: Never used Tobacco Gender identity: Female Female Reproductive History Menstrual Age of Menarche: 12 Vital Signs 10/22/23 10:23 Height 5 ft 2 in Weight 160 lb BMI 29.3 BP 120/80 Blood Pressure Location Lt brachial Position Sitting Pulse 83 Pulse Source Pulse Oximeter Physical Exam Vital Signs: Last Vital Signs Pulse 83 10/22/23 10:23 BP 120/80 10/22/23 10:23 BMI result Body Mass Index 29.3 Const General: comfortable and no acute distress Orientation/consciousness: patient oriented x3 HEENT Head: Yes normocephalic Mouth: Normal oral and palatal mucosa present Eyes EOM: EOMs intact bilaterally Neck Neck: Yes supple Resp Auscultation: clear to auscultation bilaterally Cardio Jugular venous distension: no JVD Rate: regular rate GI Palpation (GI): Soft to palpation Auscultation: normal bowel sounds General: Yes no CVA tenderness Back/Spine/Pelvis Back: no CVA tenderness Skin General skin exam: no rashes or lesions noted Neuro General: patient oriented x3 and moves all extremities Extrem General: Yes no pedal edema Assessment & Plan Assessment & Plan (1) Membranous nephropathy determined by biopsy: Code(s): 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 Her anti CRESCENCIO 2 R antibody was negative. She never received rituximab. She has no froth or form in the urine. She has no edema. Her blood pressure is at goal. Her serum creatinine has been stable. Her volume status is optimal. She has no detectable protein in the urine now. She is on no medications. She needs to lose some weight. She hydrates herself well and avoids nonsteroidal anti-inflammatory medications. Have asked her to repeat urine studies and blood work in a year's time prior to follow-up. Time spent retrieving data, patient encounter and documentation 21 minutes. 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
[2023-10-22 10:23] VITALS: BP 120/80; PULSE 83; BMI 29.3
== END 2023-10-22 10:58 | disposition home or self-care (01) ==
PROVIDERS: PCP Internal Medicine; Visit Provider Internal Medicine Nephrology
DX: N02.2 Recurrent and persistent hematuria with diffuse membranous glomerulonephritis (principal)
CPT/HCPCS: 99213

== ENCOUNTER → 2023-10-22 10:00 | Outpatient (BNVA) | payer MEDICAID, SELFPAY | PROVIDERS: PCP Internal Medicine; Visit Provider Internal Medicine Nephrology | DX: N02.2 Recurrent and persistent hematuria with diffuse membranous glomerulonephritis (principal) | CPT/HCPCS: 99212 ==

== ENCOUNTER 2024-11-19 09:25 | Outpatient (AMB) | payer OTHER, MEDICAID, SELFPAY ==
--- NOTE | 2024-11-19 09:28 | HO.NEPHOV ---
Vital Signs 11/19/24 09:30 Height 5 ft 2 in Weight 167 lb 4 oz BMI 30.6 BP 110/80 Blood Pressure Location Lt brachial Position Sitting Pulse 88 Pulse Source Pulse Oximeter Pulse Oximetry (%) 100 Oxygen Delivery Method Room Air Intake Visit Reasons: 1 Year-LVM Accompanied by: Self / Same As Patient Allergies No Known Allergies Allergy (Verified 11/19/24 09:30) HPI Comments Details: I had the privilege of seeing Lynda in follow-up for her history of proteinuria. She had biopsy-proven membranous nephropathy. She was on DOYLE-inhibitor which was discontinued during her . She never had rituximab. Her anti CRESCENCIO 2R antibody has been negative. She has no edema, froth or foam in the urine. Her blood pressure has been normal and his serum creatinine has been stable. she hydrates herself well and avoids nonsteroidal anti-inflammatory medications. She feels well at the time of this visit. [facility] Medical History History of rectal polyps Hx of membranous glomerulonephritis Hx of pre-eclampsia in prior , currently Family History Mother No problems noted. Father Hx of primary hypertension Hx of arterial ischemic stroke Maternal Grandfather No problems noted. Maternal Grandmother Hx of diabetes mellitus Paternal Grandfather No problems noted. Maternal Grandmother No problems noted. Brother No problems noted. Brother No problems noted. Sister No problems noted. Social History Alcohol intake: never Patient Tobacco Use Status: Never used Tobacco Gender identity: Female Female Reproductive History Menstrual Age of Menarche: 12 Review of Systems Const All systems reviewed & are unremarkable except as noted in HPI and below Physical Exam Vital Signs: Last Vital Signs Pulse 88 11/19/24 09:30 BP 110/80 11/19/24 09:30 Pulse Ox 100 11/19/24 09:30 Oxygen Delivery Method Room Air 11/19/24 09:30 BMI result Body Mass Index 30.6 Const General: comfortable and no acute distress Orientation/consciousness: patient oriented x3 HEENT Head: Yes normocephalic Mouth: Normal oral and palatal mucosa present Eyes EOM: EOMs intact bilaterally Neck Neck: Yes supple Resp Auscultation: clear to auscultation bilaterally Cardio Jugular venous distension: no JVD Rate: regular rate GI Palpation (GI): Soft to palpation Auscultation: normal bowel sounds General: Yes no CVA tenderness Back/Spine/Pelvis Back: no CVA tenderness Skin General skin exam: no rashes or lesions noted Neuro General: patient oriented x3 and moves all extremities Extrem General: Yes no pedal edema Results Reviewed Nephrology Results: No Data to Display Assessment & Plan Assessment & Plan (1) Membranous nephropathy determined by biopsy: Code(s): 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 Her anti CRESCENCIO 2 R antibody was negative. She never received rituximab. She has no froth or form in the urine. She has no edema. Her blood pressure is at goal. Her serum creatinine has been stable. Her volume status is optimal. She has no detectable protein in the urine now. She is on no medications. She needs to lose some weight. She hydrates herself well and avoids nonsteroidal anti-inflammatory medications. Have asked her to repeat urine studies and blood work in a year's time prior to follow-up. 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
[2024-11-19 09:30] VITALS: BP 110/80; PULSE 88; O2SAT 100; BMI 30.6
== END 2024-11-19 09:55 | disposition home or self-care (01) ==
PROVIDERS: PCP Internal Medicine; Visit Provider Internal Medicine Nephrology
DX: N02.2 Recurrent and persistent hematuria with diffuse membranous glomerulonephritis (principal)
CPT/HCPCS: 99214